=== PATIENT | female | born 1975 | race Hispanic/Latino ===

== ENCOUNTER → 2016-11-15 | Outpatient (CLI) | payer BC ==
[~2016-11-15] MED LIST: AC325T PO; ACET325T38 PO; ASPI-86 PO; ASPI-875 PO; ASPI-999 PO; ATOR40TA PO; ATR20T PO; AZIT-21 PO; CEFU500T PO; CIPR500T4 PO; CLOP75TA28 PO; CLOP75TA69 PO; DIPH1TAB PO; FAMO-119 PO; FERR-57 PO; FERR1POW3 MC; FLUC150T PO; HYDR1TAB PO; HYOS0.1283 SL; IBUP-15 PO; INDO25CA PO; IRON; LOSA25TA21 PO; LOSA25TA5 PO; METH4TAB PO; METO-333 PO; METO25TA2 PO; METR500T21 PO; NF-MEXI150 PO; NITR-65 PO; OMEP40CA36 PO; ONDA4TAB8 SL; PEPCID OTC; PHEN-639 PO; PNT40TEC PO; POTA-51 PO; PRD20T PO; PROM25TA14 PO; SCR1T PO; TRAM50TA2 PO; iron; mucinex
== END ==
LOC: PREOP 05:54
PROVIDERS: ATTEND Internal Medicine
DX: Z01.818 Encounter for other preprocedural examination (principal); R19.7 Diarrhea, unspecified; R63.4 Abnormal weight loss

== ENCOUNTER 2016-11-17 09:30 | Day surgery (SDC) | payer BC ==
[~2016-11-17] VITALS: Ht 154.9 cm; Wt 70.4 kg
[~2016-11-17 09:30] MED LIST changes: -ASPI-999 PO; -CLOP75TA69 PO; -IRON
[2016-11-17] MEDS ORDERED: NS IV 1000 ML 1,000 ML ONE (09:33)
[2016-11-17] MEDS ORDERED: NS IV 1000 ML 1,000 ML IV STA (10:19)
--- NOTE | 2016-11-17 10:19 | Pre-Op Note & Conscious Sedat ---
Pre-Operative Progress Note H&P Reviewed The H&P was reviewed, patient examined and no changes noted. Date H&P Reviewed: Nov 17, 2016 Time H&P Reviewed: 10:18 Conscious Sedation Pre-Proced ASA Class: 2 Airway Mallampati Classification: (twenty-nine palms appropriate class) I. II. III, IV Lungs Heart ASA score ASA 1: a normal healthy patient ASA 2: a patient with a mild systemic disease (mid diabetes, controlled hypertension, obesity ASA 3: a patient with a severe systemic disease that limits activity (angina , COPD, prior Myocardial infarction) ASA 4: a patient with an incapacitating disease that is a constant threat to life (CHF, renal failure) ASA 5: a moribund patient not expected to survive 24 hrs. (ruptured aneurysm) ASA 6: a declared brain patient whose organs are being harvested. For emergent operations, add the letter E after the classification Grade 2 Sedation Plan: Analgesia, Amnesia, Plan communicated to team members, Discussed options with patient/fam, Discussed risks with patient/fam Note The patient is an appropriate candidate to undergo the planned procedure, sedation, and anesthesia. The patient immediately re-assessed prior to indication. ZAFAR LUNA MD Nov 17, 2016 10:18
[2016-11-17 10:22] VITALS: BP 120/81
--- NOTE | 2016-11-17 10:28 | HISTORY AND PHYSICAL ---
DICTATING PHYSICIAN: Dr. Valdez DATE OF ADMISSION: 11/17/2016 This is a 41-year-old white female referred by Dr. Sanders for diagnostic colonoscopy. She reports that ever since she underwent hiatal hernia surgery, presumed fundoplication in November 2015, she has had diarrhea. She did receive some antibiotics during that hospital stay. She had C. difficile studies done in January that were negative on review of her EMR, did not find any other GI evaluation or stool culture results through [facility] [place] EMR. She denies chills or fever and reports 6 stools per day. When she takes Macrobid for urinary tract infection or prophylaxis she notes some improvement in her symptoms, when she stops it diarrhea seems to get worse. She has had no previous problems with diarrhea and reports minimal cramping or bloating with her symptoms. She has no previous history of irritable bowel or diarrhea problems and is not aware of any family history for inflammatory bowel disease. She has had no travel outside the country. PAST MEDICAL HISTORY: 1. Significant for known ischemic heart disease. 2. She is status post bypass surgery in 2012. 3. She had an ejection fraction around 27% and underwent an MRI safe defibrillator placement in August 2015. She reports no admissions for heart failure. 4. She did have one admission for chest pain felt to be noncardiac since her surgery in 2013. MEDICATIONS: 1. Macrobid 100 mg daily. 2. Losartan 25 mg daily. 3. Plavix 75 mg daily. 4. Aspirin 81 mg daily. 5. Metoprolol 25 mg b.i.d. 6. Iron. ADDITIONAL HISTORY: The patient denies dysphasia, nausea, bright red blood per rectum or melena. SOCIAL HISTORY: She reports no smoking or drinking history and as I recall, she is employed. FAMILY HISTORY: She is not aware of any family history for colon cancer or colon polyps or inflammatory bowel disease. There is a history of coronary artery disease early. She has a history of hyperlipidemia but is intolerant to statins. PHYSICAL EXAMINATION: Reveals an anxious white female otherwise in no acute distress. Blood pressure 112/84, heart rate 72 and regular. HEENT: Oral cavity is clear with Mallampati class II configuration. CV: Reveals a regular rate and rhythm. There is blowing 2/6 holosystolic murmur heard best at the apex with some axillary radiation. No S3 or S4 appreciated. I was unable to appreciated point of maximum impulse. ABDOMEN: Soft, supple without masses, organomegaly or tenderness. EXTREMITIES: Reveal no cyanosis, clubbing, or edema. ASSESSMENT: 1. Chronic diarrheal illness. The patient was set-up for colonoscopy on the . She will hold aspirin and Plavix starting today. 2. Chronic systolic heart failure compensated. The patient is to continue her other medications unchanged. This is secondary to underlying ischemic cardiomyopathy with no symptoms to suggest acute coronary syndrome. Job ID: [id number] Dictated Date: 11/14/2016 11:35:00 Ammonia Technician Date: 11/14/2016 12:14:58/sharifa MEZA
[2016-11-17] MEDS ORDERED: LIDOCAINE JELLY 2% (XYLOCAINE) 5 ML TUBE MM PRN (10:30)
[2016-11-17] MEDS ORDERED: NALOXONE 0.4 MG/ML 1 ML (NARCAN) VIAL IVP PRN (10:30)
[2016-11-17] MEDS ORDERED: FLUMAZENIL (ROMAZICON) 0.1 MG/ML 5 ML VIAL INJ PRN (10:30)
[2016-11-17] MEDS ORDERED: IRON (10:34)
[2016-11-17] MEDS ORDERED: NITR-65 PO (10:35)
[2016-11-17] MEDS ORDERED: fentaNYL INJECTION 100 MCG/2 ML AMP ONE ×2 (10:49→11:14)
[2016-11-17] MEDS ORDERED: MIDAZOLAM 2 MG/2 ML (VERSED) VIAL ONE ×3 (10:49→11:22)
[2016-11-17] MEDS ORDERED: LIDOCAINE JELLY 2% (XYLOCAINE) 5 ML TUBE ONE (10:49)
[2016-11-17] MEDS: fentaNYL INJECTION 100 MCG/2 ML AMP IVP PRN ×2 (11:08→11:22)
[2016-11-17] MEDS: MIDAZOLAM 2 MG/2 ML (VERSED) VIAL IVP PRN ×3 (11:10→11:28)
[2016-11-17 12:15] VITALS: BP 122/71
[2016-11-17 12:50] VITALS: BP 122/76
[2016-11-17 13:10] VITALS: BP 122/76
--- NOTE | 2016-11-18 09:28 | PROCEDURE REPORT ---
PROCEDURE PHYSICIAN: ZAFAR LUNA DATE OF PROCEDURE: 11/17/2016 COLONOSCOPY SUMMARY: Ms. Sandoval is a 41-year-old white female referred for colonoscopy due to diarrhea. PROCEDURE: The patient was placed in left lateral decubitus position. Prior to undergoing colonoscopy, digital rectal evaluation was performed. Anal sphincter tone was normal and the perianal reflex was intact. No abnormalities were noted to digital inspection of the anal canal or distal rectal vault. The colonoscope was then inserted into the rectum and under direct visualization, advanced to the cecum. The terminal ileum was intubated and distal several centimeters of terminal ileum were inspected as well. Careful inspection was made as the colonoscope was withdrawn. FINDINGS: There was no evidence for internal or external hemorrhoids. The rectum, sigmoid colon, descending colon, transverse colon, ascending colon and cecum and terminal ileum were unremarkable. No evidence for inflammatory change or neoplasia was noted. No diverticulum were identified. The terminal ileum revealed normal appearing villous architecture to gross inspection. ASSESSMENT: Normal colonoscopy to the cecum including terminal ileum. A biopsy was obtained from the rectum to rule out microscopic colitis. It was advised the patient start probiotic supplement as she does report her diarrhea began following surgery in November where she did receive antibiotics. I thank you for the referral of this pleasant lady. Sincerely, Job ID: [id number] Dictated Date: 11/17/2016 12:27:57 Office Clerk Assistant Date: 11/18/2016 09:21:50 / [email or web address]
== END 2016-11-17 13:00 | disposition home or self-care (01) ==
LOC: SDC 09:30
PROVIDERS: ATTEND Internal Medicine
DX: R19.7 Diarrhea, unspecified (principal)

== ENCOUNTER 2017-01-05 15:13 | Emergency (ER) | payer BC ==
[~2017-01-05] VITALS: Ht 154.9 cm; Wt 68.0 kg
[~2017-01-05 15:13] MED LIST changes: +IRON
[2017-01-05] MEDS ORDERED: CLOP75TA69 PO (15:46)
[2017-01-05] MEDS ORDERED: ASPI-999 PO (15:46)
--- NOTE | 2017-01-05 16:34 | ED General ---
General Chief Complaint: Abdominal/GI Problems Stated Complaint: ABD PAIN, L HAND/ARM NUMBNESS Nursing Triage Note: VOMITING ONSET THIS AM WITH LOOSE STOOL X4 TODAY. ALSO C/O PAIN AND NUMBNESS TO L HAND. STATES SHE WAS SEEN AT CLINIC THIS AM. HAD NEG FLU SCREEN AND RECEIVED RX FOR NAUSEA. Nursing Sepsis Screen: No Definite Risk Source of Information: Patient Exam Limitations: No Limitations History of Present Illness Time Seen by Provider: 16:33 Initial Comments To ER with a headache intermittently over the past 3-4 days that awakened her sleep, intermittent left arm pain and tingling, intermittent diarrhea as well as nausea for the past few days. Timing/Duration: 1-2 Days Severity: Moderate Allergies and Home Medications Allergies Coded Allergies: acetaminophen (Verified Allergy, Unknown, 11/22/15) codeine (Verified Allergy, Unknown, 11/22/15) Home Medications (Reported) Aspirin 81 Mg Tab.chew 81 MG PO (Reported) Clopidogrel Bisulfate 75 Mg Tablet 75 MG PO DAILY (Reported) Losartan Potassium 25 Mg Tablet 25 MG PO DAILY (Reported) Constitutional: see HPI EENTM: see HPI Respiratory: no symptoms reported Cardiovascular: no symptoms reported Genitourinary: no symptoms reported Musculoskeletal: no symptoms reported Skin: no symptoms reported Psychiatric/Neurological: See HPI Headache Hematologic/Lymphatic: No Symptoms Reported Past Byjzhkg-Zeglcm-Patohi Hx Patient Social History Alcohol Use: Denies Use Recreational Drug Use: No Smoking Status: Never a Smoker Recent Foreign Travel: No Contact w/Someone Who Travel: No Recent Infectious Disease Expo: No Recent Hopitalizations: No Immunizations Up To Date Tetanus Booster (TDap): Less than 5yrs Date of Pneumonia Vaccine: Jul 22, 2015 Date of Influenza Vaccine: Jul 22, 2015 Seasonal Allergies Seasonal Allergies: No Surgeries HX Surgeries: Yes (DOUBLE BYPASS, DEFIB, HIATAL HERNIA, tubal ligation) Surgeries: Abdominal, Cardiac, CABG, Defibrillator, Gallbladder, Tubal Ligation Respiratory Hx Respiratory Disorders: No Cardiovascular Hx Cardiac Disorders: Yes (DEFIB) Cardiac Disorders: Coronary Artery Disease, Heart Attack, Irregular Heartbeat, Palpitations Neurological Hx Neurological Disorders: No Reproductive System Hx Reproductive Disorders: No Sexually Transmitted Disease: No Female Reproductive Disorders: 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 Genitourinary Hx Genitourinary Disorders: Yes Genitourinary Disorders: UTI-Chronic Gastrointestinal Hx Gastrointestinal Disorders: Yes (CHRONIC NAUSEA) Gastrointestinal Disorders: Gastroesophageal Reflux, Hiatal Hernia Musculoskeletal Hx Musculoskeletal Disorders: No Endocrine Hx Endocrine Disorders: No HEENT HX ENT Disorders: No (GLASSES) Loss of Vision: Denies Hearing Impairment: Denies Cancer Hx Cancer: No Psychosocial Hx Psychiatric Problems: Yes Behavioral Health Disorders: Anxiety Integumentary HX Skin/Integumentary Disorder: No Blood Transfusions Hx Blood Disorders: No Adverse Reaction to a Blood Tr: No Family Medical History Significant Family History: No Pertinent Family Hx, Heart Disease, CAD Under 55 Years Old Family Medial History: Hypercholesterolemia 19 FATHER 19 MOTHER Hypertension 19 FATHER 19 MOTHER Thyroid disease G8 BROTHER Physical Exam Vital Signs Vital Sign - Last 12Hours 01/05/17 15:38 Temp 98.0 Pulse 64 Resp 16 B/P 113/79 Pulse Ox 100 Capillary Refill : Less Than 3 Seconds General Appearance: No Apparent Distress WD/WN Eyes: Bilateral Eye EOMI, Bilateral Eye Normal Inspection, Bilateral Eye PERRL HEENT: PERRL/EOMI TMs Normal Neck: Full Range of Motion Normal Inspection Respiratory: Chest Non Tender Lungs Clear No Accessory Muscle Use No Respiratory Distress Cardiovascular: Regular Rate, Rhythm Normal Peripheral Pulses Other (healed sternotomy incision to the mid chest) Gastrointestinal: Normal Bowel Sounds Non Tender Soft Extremity: Normal Capillary Refill Normal Inspection Neurologic/Psychiatric: Alert Oriented x3 Skin: Normal Color Warm/Dry Progress/Results/Core Measures Results/Orders Lab Results Laboratory Tests Test 01/05/17 17:00 01/05/17 17:05 Range/Units Alanine Aminotransferase (ALT/SGPT) 14 0-55 U/L Albumin 3.8 3.2-4.5 G/DL Alkaline Phosphatase 55 40-136 U/L Anion Gap 8 5-14 MMOL/L Aspartate Amino Transf (AST/SGOT) 18 5-34 U/L BUN/Creatinine Ratio 16 Basophils # (Auto) 0.1 0.0-0.1 10^3/uL Basophils (%) (Auto) 1 0-10 % Blood Urea Nitrogen 11 7-18 MG/DL Calcium Level 8.7 8.5-10.1 MG/DL Carbon Dioxide Level 27 21-32 MMOL/L Chloride Level 108 H 98-107 MMOL/L Creatinine 0.70 0.60-1.30 MG/DL Eosinophils # (Auto) 0.1 0.0-0.3 10^3/uL Eosinophils (%) (Auto) 1 0-10 % Estimat Glomerular Filtration Rate > 60 Glucose Level 57 *L 70-105 MG/DL Hematocrit 37 35-52 % Hemoglobin 12.3 11.5-16.0 G/DL Lipase 21 8-78 U/L Lymphocytes # (Auto) 1.8 1.0-4.0 X 10^3 Lymphocytes (%) (Auto) 25 12-44 % Mean Corpuscular Hemoglobin 28 25-34 PG Mean Corpuscular Hemoglobin Concent 33 32-36 G/DL Mean Corpuscular Volume 84 80-99 FL Mean Platelet Volume 11.0 H 7.4-10.4 FL Monocytes # (Auto) 0.8 0.0-1.0 X 10^3 Monocytes (%) (Auto) 12 0-12 % Neutrophils # (Auto) 4.3 1.8-7.8 X 10^3 Neutrophils (%) (Auto) 61 42-75 % Platelet Count 270 130-400 10^3/uL Potassium Level 3.5 L 3.6-5.0 MMOL/L Red Blood Count 4.42 4.35-5.85 10^6/uL Red Cell Distribution Width 15.2 H 10.0-14.5 % Sodium Level 143 135-145 MMOL/L Total Bilirubin 0.5 0.1-1.0 MG/DL Total Protein 6.1 L 6.4-8.2 G/DL Troponin I < 0.30 <0.30 NG/ML White Blood Count 7.0 4.3-11.0 10^3/uL Ur Tricyclic Antidepressants Screen NEGATIVE NEGATIVE Urine Amorphous Sediment MOD JAYLEEN PHOSPHATE H /LPF Urine Amphetamines Screen NEGATIVE NEGATIVE Urine Bacteria LARGE H /HPF Urine Barbiturates Screen NEGATIVE NEGATIVE Urine Benzodiazepines Screen NEGATIVE NEGATIVE Urine Bilirubin NEGATIVE NEGATIVE Urine Cannabinoids Screen NEGATIVE NEGATIVE Urine Casts NONE /LPF Urine Clarity SLIGHTLY CLOUDY Urine Cocaine Screen NEGATIVE NEGATIVE Urine Color YELLOW Urine Crystals PRESENT H /LPF Urine Culture Indicated NO Urine Glucose (UA) NEGATIVE NEGATIVE Urine Ketones NEGATIVE NEGATIVE Urine Leukocyte Esterase NEGATIVE NEGATIVE Urine Methadone Screen NEGATIVE NEGATIVE Urine Methamphetamines Screen NEGATIVE NEGATIVE Urine Mucus MODERATE H /LPF Urine Nitrite NEGATIVE NEGATIVE Urine Opiates Screen NEGATIVE NEGATIVE Urine Oxycodone Screen NEGATIVE NEGATIVE Urine Phencyclidine Screen NEGATIVE NEGATIVE Urine Propoxyphene Screen NEGATIVE NEGATIVE Urine Protein NEGATIVE NEGATIVE Urine RBC NONE /HPF Urine RBC (Auto) NEGATIVE NEGATIVE Urine Specific [place] 1.015 L 1.016-1.022 Urine Squamous Epithelial Cells 5-10 /HPF Urine Urobilinogen NORMAL NORMAL MG/DL Urine WBC NONE /HPF Urine pH 8 5-9 My Orders Orders-OTTO TYSON APRN Cbc With Automated Diff (01/05/17 16:10) Comprehensive Metabolic Panel (01/05/17 16:10) Troponin I (01/05/17 16:10) Ua Culture If Indicated (01/05/17 16:10) Drug Screen Stat (Urine) (01/05/17 16:10) Urine Bedside (01/05/17 16:10) Lipase (01/05/17 16:10) Ct Head Wo (01/05/17 16:23) D50w (Emergency) Syringe (Dextrose 50% 5 (01/05/17 17:45) Diet Order UD (01/05/17 17:37) Vital Signs/I&O Vital Sign - Last 12Hours 01/05/17 15:38 Temp 98.0 Pulse 64 Resp 16 B/P 113/79 Pulse Ox 100 Blood Pressure Mean: 90 Departure Communication Progress Notes 1755-patient denies any left arm numbness or headache at this time. No pain and left arm. She was concerned by her headaches and that was her main reason for visiting the emergency room. She is reassured by the normal CAT scan. She is not symptomatically with her blood sugar 57 though she was given pain about her and rolf crackers as well as 2 glasses of orange juice. She'll be discharged to home. Impression Impression: Primary Impression: Nausea and vomiting Additional Impression: Hypoglycemia Disposition: 01 HOME, SELF-CARE Condition: Stable Departure-Patient Inst. Decision time for Depature: 17:47 Referrals: [facility] (PCP) Primary Care Physician LEONOR LIN (Family) Primary Care Physician Patient Instructions: Nausea and Vomiting, Adult Add. Discharge Instructions: All discharge instructions reviewed with patient and/or family. Voiced understanding. OTTO TYSON APRN Jan 05, 2017 16:34
--- NOTE | 2017-01-05 16:48 | Diagnostic Imaging Report ---
PROCEDURE: CT head without contrast. TECHNIQUE: Multiple contiguous axial images were obtained through the brain without the use of intravenous contrast. INDICATION: Multiple headaches for the last week, no known injury. COMPARISON: None. DISCUSSION: No intracranial hemorrhage, mass, midline shift, or hydrocephalus. The ventricles and sulci are normal size and configuration for age. The visualized orbits, paranasal sinuses, mastoid air cells, and calvarium are unremarkable. IMPRESSION: 1. Normal head CT. Dictated by: Dictated on workstation # [id number]
[2017-01-05 17:17] LABS: BILIRUBIN,URINE NEGATIVE (NEGATIVE); KETONES,URINE NEGATIVE (NEGATIVE); LEUKOCYTE ESTERASE ,URINE NEGATIVE (NEGATIVE); NITRITE,URINE NEGATIVE (NEGATIVE); PH,URINE 8 (5-9); PROTEIN,URINE NEGATIVE (NEGATIVE); UROBILINOGEN,URINE NORMAL (NORMAL)
[2017-01-05 17:18] LABS: BASOPHILS # (AUTO) 0.1 10^3/uL (0.0-0.1); BASOPHILS % (AUTO) 1 % (0-10); EOSINOPHILS # (AUTO) 0.1 10^3/uL (0.0-0.3); EOSINOPHILS % (AUTO) 1 % (0-10); LYMPHOCYTES # (AUTO) 1.8 X 10^3 (1.0-4.0); LYMPHOCYTES % (AUTO) 25 % (12-44); MEAN CORPUSCULAR HEMOGLOBIN 28 PG (25-34); MEAN CORPUSCULAR HGB CONC 33 G/DL (32-36); MEAN CORPUSCULAR VOLUME 84 FL (80-99); MONOCYTES # (AUTO) 0.8 X 10^3 (0.0-1.0); MONOCYTES % (AUTO) 12 % (0-12); NEUTROPHILS # (AUTO) 4.3 X 10^3 (1.8-7.8); NEUTROPHILS % (AUTO) 61 % (42-75); PLATELET COUNT 270 10^3/uL (130-400); RED BLOOD COUNT 4.42 10^6/uL (4.35-5.85); RED CELL DISTRIBUTION WIDTH 15.2 % (10.0-14.5)
[2017-01-05 17:27] LABS: ALANINE AMINOTRANSFERASE 14 U/L (0-55); ALBUMIN 3.8 G/DL (3.2-4.5); ANION GAP 8 MMOL/L (5-14); ASPARTATE AMINO TRANSFERASE 18 U/L (5-34); BILIRUBIN,TOTAL 0.5 MG/DL (0.1-1.0); BLOOD UREA NITROGEN 11 MG/DL (7-18); BUN/CREATININE RATIO 16; CALCIUM 8.7 MG/DL (8.5-10.1); CARBON DIOXIDE 27 MMOL/L (21-32); CHLORIDE 108 MMOL/L (98-107); GFR ESTIMATED > 60; LIPASE 21 U/L (8-78); POTASSIUM 3.5 MMOL/L (3.6-5.0); SODIUM 143 MMOL/L (135-145); TOTAL PROTEIN 6.1 G/DL (6.4-8.2)
[2017-01-05 17:30] LABS: GLUCOSE 57 MG/DL (70-105)
[2017-01-05 17:32] LABS: TROPONIN I < 0.30 NG/ML (<0.30)
[2017-01-05] MEDS ORDERED: DEXTROSE 50% 50 ML (IMS) SYR IV ONE (17:45)
[2017-01-05 18:05] VITALS: BP 107/68
== END 2017-01-05 18:09 | disposition home or self-care (01) ==
LOC: EDUNIT# 15:13 → ER 15:15
DX: R51 Headache (principal); R11.0 Nausea; E16.2 Hypoglycemia, unspecified; M79.602 Pain in left arm; I25.10 Atherosclerotic heart disease of native coronary artery without angina pectoris; I25.2 Old myocardial infarction; Z79.82 Long term (current) use of aspirin; Z79.02 Long term (current) use of antithrombotics/antiplatelets; Z79.899 Other long term (current) drug therapy; Z95.1 Presence of aortocoronary bypass graft; Z95.810 Presence of automatic (implantable) cardiac defibrillator
CPT/HCPCS: 36415; 70450; 80053; 80306; 81000; 83690; 84484; 85025; 99283